=== PATIENT | female | born 1940 ===

== ENCOUNTER 2017-10-15 12:54 | Inpatient (IN) | payer OTHER ==
[~2017-10-15] VITALS: Ht 152.4 cm; Wt 68.0 kg
[2017-10-28] MEDS ORDERED: OMEPRAZOLE20 M1 PO (14:56)
[2017-10-28] MEDS ORDERED: KEPPRA750 MG PO (14:56)
[2017-10-28] MEDS ORDERED: DEPAKOTE ER250 MG PO (14:56)
[2017-10-28] MEDS ORDERED: AVAPRO150 MG PO (14:57)
[2017-10-28] MEDS ORDERED: ASPIR 8181 MG PO (14:57)
[2017-11-03] MEDS ORDERED: OMEPRAZOLE20 MG PO (11:28)
[2017-11-03] MEDS ORDERED: TYLENOL ARTHRI650 MG PO (11:28)
== END 2017-11-03 13:29 | disposition home or self-care (01) | DRG 330 ==
LOC: SURH 10-30 06:37 → O/R 10-30 06:37 → SURG 10-30 08:30 → SURH 10-30 12:20 → SURG 10-30 12:45 → SURH 10-30 19:30
PROVIDERS: Surgery
PROC: 07TC4ZZ Resection of Pelvis Lymphatic, Percutaneous Endoscopic Approach (ICD-10-PCS; 2017-10-30)
PROC: 4A12X4Z Monitoring of Cardiac Electrical Activity, External Approach (ICD-10-PCS; 2017-10-30)
PROC: 4A033R1 Measurement of Arterial Saturation, Peripheral, Percutaneous Approach (ICD-10-PCS; 2017-10-30)
PROC: 0DTF4ZZ Resection of Right Large Intestine, Percutaneous Endoscopic Approach (ICD-10-PCS; principal; 2017-10-30 08:30)
DX: D12.0 Benign neoplasm of cecum (principal); G40.89 Other seizures; R59.0 Localized enlarged lymph nodes; G47.33 Obstructive sleep apnea (adult) (pediatric); I11.9 Hypertensive heart disease without heart failure; Z95.0 Presence of cardiac pacemaker; D64.89 Other specified anemias; M48.19 Ankylosing hyperostosis [Forestier], multiple sites in spine